=== PATIENT | female | born 1965 | race African-American/Black ===

== ENCOUNTER 2020-12-30 13:17 | Emergency (ER) | payer OTHER ==
[~2020-12-30] VITALS: Ht 167.6 cm; Wt 95.0 kg
[2020-12-30] MEDS ORDERED: KETOROLAC 30MG/ML VIAL IM ONE (15:30)
[2020-12-30 16:12] VITALS: BP 137/98
[2020-12-30] MEDS ORDERED: NAPR-681 MT (17:16)
== END 2020-12-30 17:32 | disposition home or self-care (01) ==
LOC: ER 13:17
DX: M54.89 Other dorsalgia (principal); M54.2 Cervicalgia; R07.89 Other chest pain; R51.9 Headache, unspecified; G89.11 Acute pain due to trauma; V49.49XA Driver injured in collision with other motor vehicles in traffic accident, initial encounter; Y93.89 Activity, other specified; Y92.488 Other paved roadways as the place of occurrence of the external cause
CPT/HCPCS: 71046; 72070; 93005; 96372; 99284; J1885

== ENCOUNTER 2021-10-11 13:01 | Emergency (ER) | payer OTHER ==
[~2021-10-11] VITALS: Ht 165.1 cm; Wt 96.0 kg
[~2021-10-11 13:01] MED LIST: NAPR-681 MT
[2021-10-11 13:04] VITALS: BP 117/77
== END 2021-10-12 13:09 | disposition left against medical advice (07) ==
LOC: ER 13:31
DX: R21 Rash and other nonspecific skin eruption (principal); Z53.21 Procedure and treatment not carried out due to patient leaving prior to being seen by health care provider